=== PATIENT | female | born 1970 | race American Indian/Alaskan Native ===

== ENCOUNTER 2022-04-13 12:01 | Emergency (ER) | payer BC ==
[2022-04-13 20:32] LABS: Basophils # (Auto) 0.2 K/mm3 (0.0-0.1); Basophils % (Auto) 2.4 % (0.0-1.8); Eosinophils # (Auto) 0.1 K/mm3 (0.0-0.4); Eosinophils % (Auto) 1.4 % (0.0-4.3); Hematocrit 35.6 % (30.3-42.9); Hemoglobin 11.9 gm/dl (10.1-14.3); Lymphocytes % (Auto) 26.4 % (13.4-35.0); Mean Corpuscular HGB Conc 33 % (30-34); Mean Corpuscular Volume 92 fl (79-97); Monocytes # (Auto) 0.3 K/mm3 (0.0-0.8); Monocytes % (Auto) 4.5 % (0.0-7.3); Platelet Count 200 K/mm3 (140-440); Red Blood Count 3.87 M/mm3 (3.65-5.03)
[2022-04-13 20:36] VITALS: BP 125/70
--- NOTE | 2022-04-13 21:44 | Vascular Lab Report ---
DUPLEX DOPPLER LOWER EXTREMITY VEINS, LEFT INDICATION / CLINICAL INFORMATION: lower ext swelling and pain. TECHNIQUE: Duplex doppler imaging was performed through the veins of the left lower extremity using v enous compression and other maneuvers. COMPARISON: None available. FINDINGS: LEFT COMMON FEMORAL VEIN: Negative. LEFT FEMORAL VEIN: Negative. LEFT POPLITEAL VEIN: Negative. LEFT CALF VEINS: Negative. ADDITIONAL FINDINGS: None. IMPRESSION: 1. No sonographic evidence for DVT in the left lower extremity. Signer Name: Marquis Jeffery MD Signed: 04/13/2022 9:39 PM Workstation Name: [id number]
--- NOTE | 2022-04-13 22:20 | Emergency Department Report ---
ED General Adult HPI - General Chief complaint: Extremity Injury, Lower Stated complaint: LT LEG PAIN Time Seen by Provider: 04/13/22 20:00 Source: patient Mode of arrival: Ambulatory Limitations: No Limitations - History of Present Illness Initial comments: 51-year-old female with morbid obesity, diabetes presents emerged department complaining of swelling to the left leg which she reports is most likely related to her lymphedema but due to the pain radiating down to her foot and noticeable increase in swelling she and her PCP was worried about DVT study advised come to emergency department to be evaluated. She reports no calf pain, no chest pain, no shortness of breath, no hemoptysis symptoms hematochezia. Ports no prior DVT history. Severity scale (0 -10): 0 Improves with: none Worsens with: none Associated Symptoms: denies other symptoms Treatments Prior to Arrival: none - Related Data Previous Rx's Medication Instructions Recorded Last Taken Type HYDROcodone/ACETAMINOPHEN [[place] 1 each PO TID #14 tablet 12/17/14 Unknown Rx 7.5-325 mg TAB] Albuterol Mdi (or & Nicu Only) 2 puff IH QID PRN #1 inhalation 09/22/15 Unknown Rx [ProAir HFA Inhaler] Azithromycin [Zithromax Z-ASIF] 250 mg PO DAILY #6 tab 09/22/15 Unknown Rx Fluticasone [Flonase] 1 spray NS QDAY #1 bottle 09/22/15 Unknown Rx guaiFENesin/CODEINE [Robitussin AC] 5 ml PO Q6HR PRN #120 oral.liqd 09/22/15 Unknown Rx Allergies Allergy/AdvReac Type Severity Reaction Status Date / Time No Known Allergies Allergy Unverified 12/17/14 16:02 ED Review of Systems ROS: Stated complaint: LT LEG PAIN Other details as noted in HPI ED Past Medical Hx - Past Medical History Previous Medical History?: Yes Hx Hypertension: Yes Hx Congestive Heart Failure: Yes Additional medical history: Obesity. HIGH CHOLESTEROL - Surgical History Past Surgical History?: Yes Hx Cholecystectomy: Yes Additional Surgical History: hysterectomy; R eye - Social History Smoking Status: Never Smoker Substance Use Type: None - Medications Home Medications: Home Medications Medication Instructions Recorded Confirmed Last Taken Type HYDROcodone/ACETAMINOPHEN [[place] 1 each PO TID #14 tablet 12/17/14 Unknown Rx 7.5-325 mg TAB] Albuterol Mdi (or & Nicu Only) 2 puff IH QID PRN #1 inhalation 09/22/15 Unknown Rx [ProAir HFA Inhaler] Azithromycin [Zithromax Z-ASIF] 250 mg PO DAILY #6 tab 09/22/15 Unknown Rx Fluticasone [Flonase] 1 spray NS QDAY #1 bottle 09/22/15 Unknown Rx guaiFENesin/CODEINE [Robitussin AC] 5 ml PO Q6HR PRN #120 oral.liqd 09/22/15 Unknown Rx ED Physical Exam - General Limitations: No Limitations General appearance: alert, in no apparent distress - Head Head exam: Present: atraumatic, normocephalic - Eye Eye exam: Present: normal appearance - ENT ENT exam: Present: mucous membranes moist - Neck Neck exam: Present: normal inspection - Respiratory Respiratory exam: Present: normal lung sounds bilaterally. Absent: respiratory distress - Cardiovascular Cardiovascular Exam: Present: regular rate, normal rhythm. Absent: systolic murmur, diastolic murmur, rubs, gallop - GI/Abdominal GI/Abdominal exam: Present: soft, normal bowel sounds - Extremities Exam Extremities exam: Present: normal inspection, tenderness, pedal edema (Bilateral lower extremity lymphedema with hyperpigmentation and some acanthosis nigricans noted. Top of the left tenderness with palpation., Onychomycosis noted to the toes bilaterally) - Back Exam Back exam: Present: normal inspection. Absent: CVA tenderness (R), CVA tenderness (L) - Neurological Exam Neurological exam: Present: alert, oriented X3 - Psychiatric Psychiatric exam: Present: normal affect, normal mood - Skin Skin exam: Present: warm, dry, intact, normal color. Absent: rash ED Course Vital Signs 04/13/22 04/13/22 12:24 20:36 Temperature 98.8 F Pulse Rate 86 89 Respiratory 20 16 Rate Blood Pressure 133/84 125/70 [Right] O2 Sat by Pulse 96 98 Oximetry ED Medical Decision Making - Lab Data Result diagrams: 04/13/22 20:20 - Radiology Data Radiology results: report reviewed [facility] [address] [place] [address] Vascular Lab Report Signed Patient: SIMON PEREZ MR#: [id number] : 1970 Acct:[id number] Age/Sex: 51 / F ADM Date: 04/13/22 Loc: ED Attending Dr: Ordering Physician: ARIN ÁLVAREZ Date of Service: 04/13/22 Procedure(s): VL venous duplex LE LT Accession Number(s): [id number] cc: ARIN ÁLVAREZ DUPLEX DOPPLER LOWER EXTREMITY VEINS, LEFT INDICATION / CLINICAL INFORMATION: lower ext swelling and pain. TECHNIQUE: Duplex doppler imaging was performed through the veins of the left lower extremity using venous compression and other maneuvers. COMPARISON: None available. FINDINGS: LEFT COMMON FEMORAL VEIN: Negative. LEFT FEMORAL VEIN: Negative. LEFT POPLITEAL VEIN: Negative. LEFT CALF VEINS: Negative. ADDITIONAL FINDINGS: None. IMPRESSION: 1. No sonographic evidence for DVT in the left lower extremity. Signer Name: Marquis Jeffery MD Signed: 04/13/2022 9:39 PM Workstation Name: [id number] Transcribed By: Dictated By: Marquis Jeffery MD Electronically Authenticated By: Marquis Jeffery MD Signed Date/Time: 04/13/222138 DD/ 38 TD/TT: Critical care attestation.: If time is entered above; I have spent that time in minutes in the direct care of this critically ill patient, excluding procedure time. ED Disposition Clinical Impression: Lower extremity edema Disposition: 01 HOME / SELF CARE / HOMELESS Is pt being admited?: No Does the pt Need Aspirin: No Condition: Stable Instructions: Peripheral Edema Additional Instructions: Ultrasound showed no evidence of a DVT per suspicion of your primary care provider and you Ms. Perez please be sure to follow-up with primary care provider for further evaluation and treatment of your peripheral edema/lymphedema. Referrals: PRIMARY CARE, [Referring] - 3-5 Days
== END 2022-04-13 23:32 | disposition home or self-care (01) ==
LOC: ED 12:01
DX: R22.43 Localized swelling, mass and lump, lower limb, bilateral (principal); I10 Essential (primary) hypertension
CPT/HCPCS: 36415; 85025; 99284